=== PATIENT | male | born 1950 | race Caucasian/White ===

== ENCOUNTER 2020-03-22 00:46 | Emergency (ER) | payer MEDICARE, OTHER ==
[~2020-03-22] VITALS: Ht 172.7 cm; Wt 85.3 kg
--- NOTE | 2020-03-22 00:50 | NUR ---
Dr Das at bedside for MSE.
[2020-03-22] MEDS ORDERED: ONDANSETRON ODT 4 MG TAB.RAPDIS SL ONE (01:00)
[2020-03-22] MEDS ORDERED: CEphaleXIN 500 MG CAPSULE PO ONE (01:00)
[2020-03-22] MEDS ORDERED: MORPHINE SULFATE 4 MG/1 ML DISP.SYRIN IM ONE (01:00)
[2020-03-22] MEDS ORDERED: TDAP DIPH,PERTUSS,TET VAC/PF 0.5 ML DISP.SYRIN IM ONE ×2 (01:00→01:07)
[2020-03-22] MEDS ORDERED: MORPHINE SULFATE 4 MG/1 ML DISP.SYRIN ONE (01:06)
[2020-03-22] MEDS ORDERED: CEphaleXIN 500 MG CAPSULE ONE (01:06)
[2020-03-22] MEDS ORDERED: ONDANSETRON ODT 4 MG TAB.RAPDIS ONE (01:06)
[2020-03-22 02:28] VITALS: BP 139/73
== END 2020-03-22 02:30 | disposition home or self-care (01) ==
LOC: ER 00:50
DX: S00.531A Contusion of lip, initial encounter (principal); S00.33XA Contusion of nose, initial encounter; Y04.2XXA Assault by strike against or bumped into by another person, initial encounter; Y92.481 Parking lot as the place of occurrence of the external cause; Y99.8 Other external cause status; Z95.5 Presence of coronary angioplasty implant and graft; F10.129 Alcohol abuse with intoxication, unspecified
CPT/HCPCS: 70450; 90471; 90715; 96372; 99284; J2270; A4663; Q0162